=== PATIENT | female | born 1990 | race Caucasian/White ===

== ENCOUNTER 2017-08-20 17:24 | Emergency (ER) | payer MEDICAID, OTHER ==
[~2017-08-20] VITALS: Ht 160 cm; Wt 64.5 kg
[2017-08-20 17:28] VITALS: Ht 160 cm; Wt 64.5 kg
--- NOTE | 2017-08-20 18:19 | ERD ---
ER Documentation Chief Complaint Chief Complaint left shoulder pain x4 days radiating down back HPI Otherwise healthy 26-year-old female presents with the chief complaints of left shoulder pain radiating down arm 4 days. Worse with pressure. Denies trauma. Denies fever, urinary incontinence/retention, loss of range of motion. Tylenol without relief. No family history. Patient has no other complaints and describes no other associated manifestations. ROS All systems reviewed and are negative except as per history of present illness. Allergies Allergies: Coded Allergies: diphenhydramine (Unverified Allergy, Unknown, hives, 08/20/17) Physical Exam Vitals Vital Signs Date Time Temp Pulse Resp B/P Pulse Ox O2 Delivery O2 Flow Rate FiO2 08/20/17 17:28 98.7 107 18 123/73 100 Physical Exam Const: Well-appearing 26-year-old female no acute distress. Head: Atraumatic Eyes: Normal Conjunctiva ENT: Normal External Ears, Nose and Mouth. Neck: Full range of motion. Supple.~ No meningismus. Resp: Clear to auscultation bilaterally. Deep inspiration reproduces pain. Cardio: Regular rate and rhythm, no murmurs Abd: Soft, non tender, non distended. Normal bowel sounds Skin: No petechiae or rashes Back: No midline or flank tenderness. Full range of motion. Ext: No cyanosis, or edema. Full range of motion. Tender palpation of the left superior scapula. Neur: Awake and alert Psych: Normal Mood and Affect Procedures/MDM Otherwise healthy 26-year-old female presenting with a chief complaint of left shoulder pain that radiates down to her hand. Physical exam revealed a tenderness to palpation of the superior left border of scapula. Negative Phalen 's and Tinel's test. No numbness or tingling. L rib pain with deep inspiration. No shortness of breath or abdominal pain. X-ray of the area was taken read by the radiologist and given the impression of unremarkable. At this time I have little suspicion for ACS, pneumonia, pulmonary embolism, acute bony pathology, or neurovascular compromise. Most likely diagnosis is costochondritis versus shoulder pain of unknown etiology. I recommended over- the-counter ibuprofen. I have spoke with the patient regarding their condition and future management. They have verbally responded that they understand their status and treatment plan. The patients vitals are stable, and their current condition is appropriate for discharge. The patient will be given discharge instructions with return precautions. Departure Diagnosis: Primary Impression: Shoulder pain Chronicity: acute Laterality: left Qualified Code: M25.512 - Acute pain of left shoulder Condition: Stable REJI HILL PA-C Aug 20, 2017 18:19
--- NOTE | 2017-08-20 19:24 | RADRPT ---
PROCEDURE: XR left shoulder. CLINICAL INDICATION: Pain TECHNIQUE: Axillary, Internal and external rotation views of the left shoulder were performed. COMPARISON: None. FINDINGS: There is normal osseous mineralization and alignment. No acute fracture or osseous lesion is identified. There are normal joints without evidence of arthritis or dislocation. The soft tissues are unremarkable. RPTAT: AA IMPRESSION: Unremarkable left shoulder. < .Jonny Jang MD, MD Date Time Electronically viewed and signed by .Jonny Jang MD, on 08/20/2017 19:24 .S/
== END 2017-08-20 19:44 | disposition home or self-care (01) ==
LOC: FTE 17:24
DX: M25.512 Pain in left shoulder (principal)
CPT/HCPCS: 73030; Z7502